=== PATIENT | female | born 1925 | race Caucasian/White ===

== ENCOUNTER 2017-02-06 08:44 | Inpatient (IN) | payer OTHER ==
--- NOTE | 2017-02-06 08:52 | EDPHY ---
H & P Time Seen by Provider: 02/06/17 08:51 HPI/ROS: CHIEF COMPLAINT: Cough HISTORY OF PRESENT ILLNESS: The patient arrives to the emergency department by paramedics. The patient has a history of Alzheimer's disease and is unable to provide much history. According to paramedics, they were contacted by the patient's [place] [facility] with a chief complaint of cough rib pain. The patient does report she has had a cough but is unable to quantify how long that has been present for. She denies any abdominal pain. She denies any asymmetric calf pain or swelling. The patient denies any additional acute complaints. REVIEW OF SYSTEMS: A comprehensive 10 point review of systems is otherwise negative aside from elements mentioned in the history of present illness, however history is felt to be limited secondary to the patient's underlying Alzheimer's disease. Source: Patient Exam Limitations: No limitations - Personal History Tetanus Vaccine Date: -2008 and booster 2014 - Medical/Surgical History Hx Asthma: No Hx Chronic Respiratory Disease: Yes Hx Diabetes: No Hx Cardiac Disease: Yes Hx Renal Disease: No Hx Cirrhosis: No Hx Alcoholism: No Hx HIV/AIDS: No Hx Splenectomy or Spleen Trauma: No Other PMH: alzheimer's, hypothyroid, pacemaker, underlying bradycardia - Social History Smoking Status: Never smoked - Physical Exam Exam: General Appearance: Elderly female, no acute distress Eyes: Pupils equal and round no pallor or injection ENT, Mouth: Mucous membranes moist Respiratory: There are no retractions, lungs are clear to auscultation Cardiovascular: Regular rate and rhythm Gastrointestinal: Abdomen is soft and nontender, no masses, bowel sounds normal Neurological: A&Ox1 (baseline), normal motor function, normal sensory exam, normal cranial nerves Skin: Warm and dry, no rashes Musculoskeletal: Neck is supple nontender Extremities: symmetrical, full range of motion Constitutional: Initial Vital Signs Temperature (C) 36.9 C 02/06/17 08:47 Heart Rate 78 02/06/17 08:47 Respiratory Rate 16 02/06/17 08:47 Blood Pressure 106/58 L 02/06/17 08:47 O2 Sat (%) 90 L 02/06/17 08:47 O2 Delivery Mode Room Air Allergies/Adverse Reactions: erythromycin base [Erythromycin Base] Allergy (Unknown, Verified 05/16/15 02:02) Unknown Sulfa (Sulfonamide Antibiotics) Allergy (Unknown, Verified 05/16/15 02:02) Unknown aspirin Allergy (Verified 05/16/15 02:02) codeine [Codeine] Allergy (Verified 05/16/15 02:02) gluten Allergy (Verified 05/16/15 02:02) Home Medications: Medication Instructions Recorded Acetaminophen [Tylenol 325mg (*)] 650 mg PO BID@12,16 05/12/15 Docusate Sodium [Colace 100 MG (*)] 100 mg PO BID PRN 05/12/15 Levothyroxine [Synthroid 75 mcg 75 mcg PO DAILY06 05/12/15 (*)] Memantine HCl [Namenda Xr] 28 mg PO DAILY 05/12/15 Omeprazole [Prilosec] 40 mg PO DAILY@1130 05/12/15 Polyethylene Glycol 3350 [Miralax 17 gm PO DAILY PRN 05/12/15 17 gm (*)] Sodium Chloride [Salt Tablet] 1 gm PO TID@08,12,20 05/12/15 oxyCODONE/APAP 5/325 [Percocet 1 tab PO Q4 PRN #0 tab 05/19/15 5/325 (*)] Escitalopram Oxalate [Lexapro] 10 mg PO DAILY@20 02/06/17 Estradiol [Estrace Vaginal (*)] 1 gm VG MWF 02/06/17 Furosemide [Lasix 20 MG (*)] 10 mg PO BID@08,12 02/06/17 Herbals/Supplements -Info Only 1 each PO DAILY 02/06/17 Potassium Cl [Klor-Con] 10 meq PO DAILY 02/06/17 Medical Decision Making - Diagnostics Imaging Results: Imaging Impressions Chest X-Ray 02/06/17 09:00 Impression: 1. Right upper lobe consolidation consistent with pneumonia. Has this patient aspirated? The patient has a history of presbyesophagus with dysmotility identified on esophagram in 2013. Follow-up radiography is recommended until clear. 2. Possible right thoracic inlet mass causing focal tracheal deviation. Chest CT might be considered. Results discussed with Dr. Clint Frost. ED Course/Re-evaluation: The patient presents to the ED with reported history of cough and rib/neck pain. The patient has no acute complaints in the emergency department. The patient's vital signs are stable aside from hypoxemia with an O2 sat of 87-90%. The patient is not on oxygen at baseline.. She is neurologically intact with cognitive changes consistent with her underlying dementia. The patient's chest x-ray does demonstrate evidence of a right upper lobe infiltrate. She is noted to have mild leukocytosis. The patient had blood cultures x2 obtained in the emergency department. She received supplemental oxygen. Given the patient's acute hypoxemia and pneumonia she will be admitted to the hospital. The patient's son has been notified of the patient's admission. The patient was started on IV Levaquin in the emergency department. Differential Diagnosis: Differential diagnosis considered includes asthma, bronchitis, pneumonia - Data Points Laboratory Results: Laboratory Results 02/06/17 Unknown 02/06/17 Unknown 02/06/17 02/06/17 Unknown Unknown WBC 11.27 10^3/uL H 10^3/uL (3.80-9.50) RBC 3.87 10^6/uL L 10^6/uL (4.18-5.33) Hgb 13.0 g/dL g/dL (12.6-16.3) Hct 38.4 % % (38.0-47.0) MCV 99.2 fL fL (81.5-99.8) MCH 33.6 pg pg (27.9-34.1) MCHC 33.9 g/dL g/dL (32.4-36.7) RDW 14.1 % % (11.5-15.2) Plt Count 166 10^3/uL 10^3/uL (150-400) MPV 11.0 fL fL (8.7-11.7) Neut % (Auto) 84.2 % H % (39.3-74.2) Lymph % (Auto) 5.4 % L % (15.0-45.0) [place] % (Auto) 9.4 % % (4.5-13.0) Eos % (Auto) 0.1 % L % (0.6-7.6) Baso % (Auto) 0.4 % % (0.3-1.7) Nucleat RBC Rel Count 0.0 % % (0.0-0.2) Absolute Neuts (auto) 9.49 10^3/uL H 10^3/uL (1.70-6.50) Absolute Lymphs (auto) 0.61 10^3/uL L 10^3/uL (1.00-3.00) Absolute Monos (auto) 1.06 10^3/uL H 10^3/uL (0.30-0.80) Absolute Eos (auto) 0.01 10^3/uL L 10^3/uL (0.03-0.40) Absolute Basos (auto) 0.04 10^3/uL 10^3/uL (0.02-0.10) Absolute Nucleated RBC 0.00 10^3/uL 10^3/uL (0-0.01) Immature Gran % 0.5 % % (0.0-1.1) Immature Gran # 0.06 10^3/uL 10^3/uL (0.00-0.10) Sodium 146 mEq/L H mEq/L (134-144) Potassium 4.0 mEq/L mEq/L (3.5-5.2) Chloride 103 mEq/L mEq/L (97-110) Carbon Dioxide 25 mEq/l mEq/l (22-31) Anion Gap 18 mEq/L H mEq/L (8-16) BUN 15 mg/dL mg/dL (7-23) Creatinine 0.7 mg/dL mg/dL (0.6-1.0) Estimated GFR > 60 Glucose 127 mg/dL H mg/dL (70-100) Calcium 9.2 mg/dL mg/dL (8.5-10.4) Troponin I 0.018 ng/mL ng/mL (0.000-0.034) Procalcitonin 0.18 ng/mL H ng/mL (0.02-0.10) Medications Given: Levofloxacin/Dextrose (Levaquin 500 Mg (Premix)) 100 mls @ 100 mls/hr IV EDNOW ONE PRN Reason: Protocol Stop: 02/06/17 11:49 Last Admin: 02/06/17 11:08 Dose: 100 mls Departure - Departure Disposition: [facility] Acute Clinical Impression: Dementia, Hypoxemia Pneumonia Qualifiers: Laterality: right Lung location: upper lobe of lung Condition: Fair Referrals: Lacey Quiles MD [Medical Doctor] - As per Instructions
[2017-02-06 09:53] LABS: % IMMATURE GRANULYOCYTES 0.5 % (0.0-1.1); ABSOLUTE IMMATURE GRANULOCYTES 0.06 10^3/uL (0.00-0.10); ADD DIFF? NO; ADD MORPH? NO; ADD SCAN? NO; ATYPICAL LYMPHOCYTE FLAG 0 (0-99); FRAGMENT RBC FLAG 0 (0-99); HEMATOCRIT 38.4 % (38.0-47.0); LEFT SHIFT FLG 30 (0-99); LIPEMIA HEMOLYSIS FLAG 90 (0-99); MEAN CELL HEMOGLOBIN 33.6 pg (27.9-34.1); MEAN CELL HEMOGLOBIN CONCENTR. 33.9 g/dL (32.4-36.7); MEAN CELL VOLUME 99.2 fL (81.5-99.8); PLATELET CLUMPS FLAG 30 (0-99); PLATELET COUNT 166 10^3/uL (150-400); RED BLOOD CELL COUNT 3.87 10^6/uL (4.18-5.33); RED CELL DISTRIBUTION WIDTH 14.1 % (11.5-15.2)
[2017-02-06 10:09] LABS: ANION GAP 18 mEq/L (8-16); CALCIUM 9.2 mg/dL (8.5-10.4); CARBON DIOXIDE 25 mEq/l (22-31); CHLORIDE 103 mEq/L (97-110); CREATININE 0.7 mg/dL (0.6-1.0); GLOMERULAR FILTRATION RATE > 60; GLUCOSE 127 mg/dL (70-100); SODIUM 146 mEq/L (134-144)
--- NOTE | 2017-02-06 10:15 | CPEKG ---
Heart Rate: 78 RR Interval: 769 P-R Interval: 140 QRSD Interval: 90 QT Interval: 392 QTC Interval: 447 P [place]: 18 QRS [place]: -33 T Wave [place]: 16 EKG Severity - OTHERWISE NORMAL ECG - EKG Impression: SINUS RHYTHM EKG Impression: LEFT AXIS DEVIATION Electronically Signed By: João Frost 06-Feb-2017 12:51:05
[2017-02-06 10:20] LABS: TROPONIN I 0.018 ng/mL (0.000-0.034)
[2017-02-06] MEDS ORDERED: levOFLOXACIN 500 MG/DEXTROSE 100 ML IV ONE (10:50)
[2017-02-06 11:02] LABS: PROCALCITONIN 0.18 ng/mL (0.02-0.10)
[2017-02-06] MEDS ORDERED: ONDANSETRON DISINTEGRATING 4 MG TAB PO PRN (12:06)
[2017-02-06] MEDS ORDERED: HYDROCODONE/APAP 5/325 TAB PO PRN (12:06)
[2017-02-06] MEDS ORDERED: ONDANSETRON 4 MG/2 ML VIAL IVP PRN (12:06)
[2017-02-06] MEDS ORDERED: ACETAMINOPHEN 325 MG TAB PO PRN (12:06)
--- NOTE | 2017-02-06 12:45 | ASMTCASEMG ---
Living Arrangements What is your living Answers: Unknown arrangement? Who do you live with? Type Of Residence What kind of residence do Answers: Assisted Living you live in? Type of Residence Facility Name Notes: [facility] Stairs in Home Answers: No Environment Discharge Plan Comments Coordination Status Comments Notes: Pt's son Nikolas Barnes called at request of ED MD. Dr. Nath wanted to address any concerns about sending pt back to [facility] with home medications. Nikolas indicated he had some concerns and he was told by [facility] that the pt was in [facility] He indicated that he preferred to have her observed by the hospital to ensure she does not get worse. He reported that the pt has a history of alcohol use and she calls him to request vodka. CM did not see pt directly, ED RN reported pt. has significant memory loss and struggled to respond to health questions. ODNA CORRALES CM to follow. Date Signed: 02/06/2017 12:44 PM Electronically Signed By:Isabelle Gresham LCSW
[2017-02-06] MEDS ORDERED: PIPERACILLIN/TAZO 3.375 GM/DEX 50 ML IV SCH ×2 (14:00→15:30)
[2017-02-06] MEDS: NS 1,000 ML IV SCH (14:49)
[2017-02-06] MEDS: IPRATROPIUM/ALBUTEROL 3 ML DEYVIAL IH SCH ×2 (15:19→21:29)
--- NOTE | 2017-02-06 15:35 | GHP ---
[f rep st] HISTORY AND PHYSICAL DATE OF ADMISSION: 02/06/2017 CHIEF COMPLAINT: Cough and weakness. HISTORY OF PRESENT ILLNESS: The patient is a pleasant 89-year-old female with a past medical history of dementia, who currently resides in the Memory Unit at [facility]. She had reportedly been ill r ecently with cold-like symptoms over the preceding days. She was brought to the emergency room by baldev fuentes. In the emergency room, she was initially noted to be mildly hypoxic with oxygen saturation at 87% on room air. Chest imaging performed revealed the presence of a right upper lobe consolidatio n consistent with pneumonia. There was a mass also possibly noted on chest imaging, which was causin g some focal tracheal deviation. CT of the chest was recommended for additional investigation. The patient's son was present at the bedside during evaluation today. I did review code status with him, as she has been a do not attempt resuscitation in the past, and they do confirm that that is still i n place. Otherwise, the patient has not had any difficulty with coughing or swallowing when she has been eating. PAST MEDICAL HISTORY: 1. Dementia. 2. Hypothyroidism. 3. Hypertension. 4. History of bradycardia, status post pacemaker placement. 5. Migraine headaches. PAST SURGICAL HISTORY: 1. Left eye surgery. 2. Pacemaker placement. ALLERGIES: 1. Erythromycin. 2. Sulfa. 3. Aspirin. 4. Codeine. MEDICATIONS: 1. MiraLAX 17 g daily as needed. 2. Klor-Con 10 mEq daily. 3. Omeprazole 40 mg daily. 4. Namenda XR 28 mg daily. 5. Lasix 10 mg twice a day. 6. Levothyroxine 75 mcg daily. 7. Estradiol vaginal 1 g Monday, Monday and Monday. 8. Oxycodone/acetaminophen 5/325 one tablet every 4 hours as needed. 9. Lexapro 10 mg daily. 10. Colace 100 mg twice a day as needed. 11. Salt tablets 1 g three times a day. FAMILY HISTORY: Mother and father of unknown causes. SOCIAL HISTORY: The patient currently resides in the Memory Unit at [facility]. Her son is present with her today at the bedside, and he is her [id number]. Code status was reviewed, and she i s a do not attempt resuscitation code status. REVIEW OF SYSTEMS: CONSTITUTIONAL: Positive for subjective fevers and chills. ENT: Positive for r ecent upper respiratory illness symptoms. CARDIOVASCULAR: No complaints of chest pains, palpitation s or syncopal episodes. RESPIRATORY: No complaints of any hemoptysis. She has noted a productive c ough and subjective shortness of breath. GI: No nausea, vomiting, diarrhea or constipation. No dif ficulty reported with meals. : No report of any difficulty with urination or burning with urinati on. The nurse reports that she does have vaginal prolapse. NEUROLOGIC: No complaints of headaches or focal weakness. HEMATOLOGIC: No history of any deep vein thrombosis or pulmonary embolism. PSYC HIATRIC: No history of anxiety or depression. She does have a history of dementia. ENDOCRINE: No history of diabetes. She is treated for hypothyroidism. SKIN: No recent skin rashes. MUSCULOSKELE RHETT: No focal joint pains. PHYSICAL EXAMINATION: VITAL SIGNS: Temperature 36.9, blood pressure 103/57, heart rate 77, respirat ions 18, satting 87% on room air initially in the emergency room, currently at 90% on room air. APPE ARANCE IN GENERAL: She appears comfortable. She is awake, alert, able to provide some history, but memory does seem poor. Hearing is normal. HEENT: Extraocular movements intact. Pupils equal. No scleral icterus is noted. NECK: Supple. No thyroid enlargement appreciated. CHEST: She has right upper lobe crackles. No significant wheezing is appreciated. Her respiratory effort appears normal . HEART: Regular. She does have a systolic murmur heard best right upper sternal border. ABDOMEN: Soft, nontender, nondistended. : No Hunt catheter in place. EXTREMITIES: No significant maxine ing edema. MUSCULOSKELETAL: No calf pain with palpation. No joint swelling noted. NEUROLOGIC: Cr anial nerves 2 through 12 appear intact. Her strength in extremities appears 5/5. LABS: White blood cell count 11, hemoglobin 13, platelets 166. Sodium is 146, potassium 4.0, chlori de 103, bicarb 25, BUN 15, creatinine 0.7, glucose of 127. Troponin 0.018. Procalcitonin 0.18. IMAGING: Chest x-ray shows right upper lobe consolidation consistent with pneumonia and possible rig ht thoracic inlet mass with focal tracheal deviation. ASSESSMENT AND PLAN: 1. Pneumonia: Potentially healthcare-associated pneumonia as she is currently a resident in the [facility] or[facility] Unit at [facility]. I would not exclude the possibility of aspiration as well, but she does not report any symptoms concerning for aspiration. We will go ahead and start with Zosyn for now. Bernardino Martinez has been consulted as well for a swallowing evaluation. We will order respiratory PCR charles el and schedule nebulizers through the day as well. Repeat CBC in the morning to trend white blood c ell count with these measures. 2. Acute hypoxic respiratory failure: The patient does have an oxygen saturation of 87% documented from the emergency room when she first came in. With some treatment, she was able to get this up to 90% on room air currently. We do have the oxygen on standby in case she desaturates. 3. History of hypertension: It does not appear she is on any antihypertensive agents on her outpati ent records, except for the Lasix. She clinically looks dry, and we will hold the Lasix for now. 4. Hypothyroidism: Continue current dosing of levothyroxine. 5. History of constipation: We will schedule MiraLAX at this time. 6. Esophageal reflux: Continue proton pump inhibitor. 7. Deep vein thrombosis prophylaxis: We will start Lovenox. 8. Possible tracheal mass: CT imaging has been ordered for further assessment. DISPOSITION: Anticipate she will be here for over 2 midnights, probably 3-4 days, so I am admitting her under an inpatient status. Likely could return back to [facility] once clinically stable and im proved. /[id number]/MODL
--- NOTE | 2017-02-06 15:56 | PDMN ---
Medical Necessity Medical necessity: M282 cPNA- senior living resident with O2 sats of 87% RA, with dementia, pna noted on CXR- further monitoring and tx needed
--- NOTE | 2017-02-06 16:32 | WOCRNPDOC ---
JAGUAR Advanced Assessment Note - Skin Integrity Problem, Advanced Assess Buttock Dressing Type: Open to Air Dedra Wound Tissue: Blanching, Erythema, Scarred Skin Integrity Problem Comment: No pressure injury present. Patient with ideopathic hyperpigmentation of skin surrounding anus. Also scar tissue over coccyx area where an open pressure injury was and has healed. No present concerns. Wound care will sign off. Jer FIELDS in room for care.
[2017-02-06] MEDS ORDERED: IOPAMIDOL (ISOVUE-300) 100 ML BTL ONE (16:34)
[2017-02-06] MEDS: PIPERACILLIN/TAZO 3.375 GM/DEX 50 ML IV SCH (21:40)
[2017-02-07] MEDS: PIPERACILLIN/TAZO 3.375 GM/DEX 50 ML IV SCH ×4 (02:46→19:57)
[2017-02-07] MEDS: IPRATROPIUM/ALBUTEROL 3 ML DEYVIAL IH SCH ×4 (05:17→20:44)
[2017-02-07 05:21] LABS: % IMMATURE GRANULYOCYTES 0.5 % (0.0-1.1); ABSOLUTE IMMATURE GRANULOCYTES 0.05 10^3/uL (0.00-0.10); ADD DIFF? NO; ADD MORPH? NO; ADD SCAN? NO; ATYPICAL LYMPHOCYTE FLAG 0 (0-99); FRAGMENT RBC FLAG 0 (0-99); HEMATOCRIT 30.3 % (38.0-47.0); HEMOGLOBIN 10.1 g/dL (12.6-16.3); LEFT SHIFT FLG 40 (0-99); LIPEMIA HEMOLYSIS FLAG 80 (0-99); MEAN CELL HEMOGLOBIN CONCENTR. 33.3 g/dL (32.4-36.7); MEAN PLATELET VOLUME 10.9 fL (8.7-11.7); PLATELET CLUMPS FLAG 0 (0-99); PLATELET COUNT 149 10^3/uL (150-400); RED BLOOD CELL COUNT 3.06 10^6/uL (4.18-5.33); RED CELL DISTRIBUTION WIDTH 13.9 % (11.5-15.2)
[2017-02-07 05:35] LABS: ANION GAP 14 mEq/L (8-16); CARBON DIOXIDE 23 mEq/l (22-31); CHLORIDE 106 mEq/L (97-110); CREATININE 0.8 mg/dL (0.6-1.0); GLOMERULAR FILTRATION RATE > 60; GLUCOSE 140 mg/dL (70-100); POTASSIUM 3.4 mEq/L (3.5-5.2); SODIUM 143 mEq/L (134-144)
[2017-02-07] MEDS ORDERED: LEVOTHYROXINE 75 MCG TAB PO SCH (06:00)
[2017-02-07] MEDS: ENOXAPARIN 40 MG/0.4 ML SYR SC SCH (08:58)
[2017-02-07] MEDS: POLYETHYLENE GLYCOL 3350 17 GM PKT PO SCH (08:59)
[2017-02-07] MEDS ORDERED: PANTOPRAZOLE SODIUM 40 MG TAB PO SCH (09:00)
[2017-02-07] MEDS ORDERED: OXYCODONE/APAP 5/325 TAB PO PRN (10:23)
[2017-02-07] MEDS ORDERED: POLYETHYLENE GLYCOL 3350 17 GM PKT PO PRN (10:23)
[2017-02-07] MEDS ORDERED: DOCUSATE SODIUM 100 MG CAP PO PRN (10:23)
[2017-02-07] MEDS: LEVOTHYROXINE 75 MCG TAB PO SCH (11:08)
[2017-02-07] MEDS: PANTOPRAZOLE SODIUM 40 MG TAB PO SCH (11:09)
[2017-02-07] MEDS: FUROSEMIDE 20 MG TAB PO SCH (11:09)
[2017-02-07] MEDS: ACETAMINOPHEN 325 MG TAB PO SCH ×2 (11:10→15:12)
[2017-02-07] MEDS: SODIUM CHLORIDE 1,000 MG TAB PO SCH ×2 (11:11→19:57)
--- NOTE | 2017-02-07 11:19 | HOSPPROG ---
Hospitalist Progress Note Assessment/Plan: 89y female with c/o weakness and cough. First encounter, chart reviewed. D/W RN. #PNA treating for HAP, lives at [facility] also potential for aspiration given location, await [employer] eval #AHRF related to above cont supportive care #HX HTN stable #Reflux cont meds #Dementia at baseline #Dispo likely return to [facility] in am cont supportive treatment and eval Subjective: Up in chair. Feels well. No pain. Objective: Vital Signs Temp Pulse Resp BP Pulse Ox 38.1 C 81 16 99/62 L 92 02/07/17 08:00 02/07/17 08:00 02/07/17 08:00 02/07/17 08:00 02/07/17 08:00 Microbiology 02/06/17 14:41 Respiratory Panel (PCR) - Final Nasal, Sinus - Anaerobic Tube/Swab No Organism Detected Laboratory Results 02/07/17 04:59 02/07/17 04:59 02/06/17 02/07/17 02/08/17 05:59 05:59 05:59 Intake Total 100 Balance 100 - Physical Exam Constitutional: no apparent distress, appears nourished, not in pain Eyes: PERRL, anicteric sclera, EOMI Ears, Nose, Mouth, Throat: moist mucous membranes, hearing normal, ears appear normal Cardiovascular: regular rate and rhythym, No JVD, No edema Respiratory: no respiratory distress, no rales or rhonchi, reduced air movement Gastrointestinal: normoactive bowel sounds, No tenderness, No ascites Skin: warm, normal color, No mottled Musculoskeletal: normal joint ROM, no joint effusions, generalized weakness Psychiatric: not anxious, not encephalopathic, poor memory ICD10 Worksheet Patient Problems: Problems Problem Status Onset Diarrhea Acute Abdominal pain Acute Clavicle fracture Acute Palliative care encounter Acute Pneumonia Acute Dementia Acute Hypoxemia Acute
[2017-02-07] MEDS ORDERED: NON-FORMULARY NEW DRUG (Omeprazole [Prilosec] 40 MG) PO SCH (11:30)
[2017-02-07] MEDS: NON-FORMULARY NEW DRUG (Memantine Hcl [Namenda Xr] 28 MG) PO SCH (11:38)
[2017-02-07] MEDS: NS 1,000 ML IV SCH ×2 (11:42→11:43)
--- NOTE | 2017-02-07 15:51 | ASMTCMCOM ---
CM Note CM Note Notes: Pt is a 89 y/o female that lives at [facility]. Pt was admitted for pneumonia. CM recieved a call from Abigail Marroquin from pt's PCP office (Dr. Quiles) concerning code status and if pt has a MDPOA. CM called Abigail back and informed her that pt is a DNR and her son Inderjit is MDPOA. CM met w/ pt for dispo planning. PT is recommending assised living and OT is recommending assisted living vs CM called pts son Inderjit regarding d/c POC. Son would like pt to have HC upon d/c. CM called [facility] and spoke w/ Zak about HC. Zak reports that pt is current w/ [facility]. CM faxed over updates to [facility]. CM to follow. Date Signed: 02/07/2017 03:51 PM Electronically Signed By:CHEPE Orozco
[2017-02-07] MEDS ORDERED: ESCITALOPRAM OXALATE 10 MG TAB PO SCH (20:00)
[2017-02-08] MEDS: PIPERACILLIN/TAZO 3.375 GM/DEX 50 ML IV SCH ×2 (01:43→08:35)
[2017-02-08] MEDS: IPRATROPIUM/ALBUTEROL 3 ML DEYVIAL IH SCH ×2 (05:13→11:33)
[2017-02-08 05:39] LABS: % IMMATURE GRANULYOCYTES 0.8 % (0.0-1.1); ABSOLUTE IMMATURE GRANULOCYTES 0.07 10^3/uL (0.00-0.10); ADD DIFF? NO; ADD MORPH? NO; ADD SCAN? NO; ATYPICAL LYMPHOCYTE FLAG 0 (0-99); FRAGMENT RBC FLAG 0 (0-99); HEMATOCRIT 29.8 % (38.0-47.0); HEMOGLOBIN 9.7 g/dL (12.6-16.3); LEFT SHIFT FLG 20 (0-99); LIPEMIA HEMOLYSIS FLAG 80 (0-99); MEAN CELL HEMOGLOBIN 32.7 pg (27.9-34.1); MEAN CELL HEMOGLOBIN CONCENTR. 32.6 g/dL (32.4-36.7); MEAN CELL VOLUME 100.3 fL (81.5-99.8); PLATELET CLUMPS FLAG 0 (0-99); PLATELET COUNT 172 10^3/uL (150-400); RED BLOOD CELL COUNT 2.97 10^6/uL (4.18-5.33); RED CELL DISTRIBUTION WIDTH 13.9 % (11.5-15.2)
[2017-02-08 05:48] LABS: ANION GAP 11 mEq/L (8-16); CALCIUM 8.3 mg/dL (8.5-10.4); CARBON DIOXIDE 23 mEq/l (22-31); CHLORIDE 108 mEq/L (97-110); CREATININE 0.7 mg/dL (0.6-1.0); GLOMERULAR FILTRATION RATE > 60; GLUCOSE 127 mg/dL (70-100); POTASSIUM 3.6 mEq/L (3.5-5.2); SODIUM 142 mEq/L (134-144)
[2017-02-08] MEDS ORDERED: ESTRADIOL 42.5 GM CRTUBE VG SCH (08:00)
[2017-02-08] MEDS: FUROSEMIDE 20 MG TAB PO SCH ×2 (08:30→11:37)
[2017-02-08] MEDS: LEVOTHYROXINE 75 MCG TAB PO SCH (08:30)
[2017-02-08] MEDS: SODIUM CHLORIDE 1,000 MG TAB PO SCH ×2 (08:31→11:38)
[2017-02-08] MEDS: POLYETHYLENE GLYCOL 3350 17 GM PKT PO SCH (08:31)
[2017-02-08] MEDS: ENOXAPARIN 40 MG/0.4 ML SYR SC SCH (08:34)
[2017-02-08] MEDS: NON-FORMULARY NEW DRUG (Memantine Hcl [Namenda Xr] 28 MG) PO SCH (08:36)
[2017-02-08] MEDS ORDERED: POTASSIUM CL 10 MEQ TAB PO SCH (09:00)
[2017-02-08] MEDS ORDERED: Herbals/Supplements -Info Only PO SCH (09:00)
--- NOTE | 2017-02-08 10:01 | HOSPPROG ---
Hospitalist Progress Note Assessment/Plan: 89y female with c/o weakness and cough. First encounter, chart reviewed. #PNA treating for HAP, lives at [facility] did not note any overt aspiration #AHRF related to above O2 levels stable on room air #HX HTN stable #anemia follow up w PCP #Reflux cont meds #Dementia at baseline #Dispo dc to [facility] with additional help Subjective: Bogdan has no complaints. Objective: Vital Signs Temp Pulse Resp BP Pulse Ox 37.1 C 67 16 107/67 96 02/08/17 08:00 02/08/17 08:00 02/08/17 08:00 02/08/17 08:00 02/08/17 08:00 Laboratory Results 02/08/17 04:25 02/08/17 04:25 02/07/17 02/08/17 02/09/17 05:59 05:59 05:59 Intake Total 100 550 Output Total 100 Balance 100 550 -100 - Physical Exam Constitutional: no apparent distress, appears nourished, not in pain Eyes: PERRL Ears, Nose, Mouth, Throat: hearing normal Cardiovascular: regular rate and rhythym Respiratory: no respiratory distress, reduced air movement (bibasilar) Skin: warm Musculoskeletal: no muscle tenderness Neurologic: other (alert and oriented to herself) Psychiatric: interacting appropriately, poor insight, poor judgement, poor memory ICD10 Worksheet Patient Problems: Problems Problem Status Onset Dementia Acute Hypoxemia Acute Pneumonia Acute Abdominal pain Acute Clavicle fracture Acute Diarrhea Acute Palliative care encounter Acute
[2017-02-08 11:23] VITALS: BP 111/65; PULSE 68; RESP 20; TEMP 99.3; O2SAT 90
[2017-02-08] MEDS: ACETAMINOPHEN 325 MG TAB PO SCH (11:38)
[2017-02-08] MEDS: PANTOPRAZOLE SODIUM 40 MG TAB PO SCH (11:39)
--- NOTE | 2017-02-08 11:47 | PDIAF ---
- Diagnosis Diagnosis: pneumonia/ dementia Code Status: Do Not Resuscitate - Medication Management Discharge Medications: Medications to Continue on Transfer Acetaminophen [Tylenol 325mg (*)] 650 mg PO BID@,05/12/15 [Last Taken Unknown] Docusate Sodium [Colace 100 MG (*)] 100 mg PO BID PRN 05/12/15 [Last Taken 05/15 20:00] Levothyroxine [Synthroid 75 mcg (*)] 75 mcg PO DAILY06 05/12/15 [Last Taken 07:00] Memantine HCl [Namenda Xr] 28 mg PO DAILY 05/12/15 [Last Taken 05/15/15 08:00] Omeprazole [Prilosec] 40 mg PO DAILY@1130 05/12/15 [Last Taken 05/15/15 12:00] Polyethylene Glycol 3350 [Miralax 17 gm (*)] 17 gm PO DAILY PRN 05/12/15 [Last Taken 05/15/15 08:00] Sodium Chloride [Salt Tablet] 1 gm PO TID@,,05/12/15 [Last Taken 20:00] oxyCODONE/APAP 5/325 [Percocet 5/325 (*)] 1 tab PO Q4 PRN #0 tab 05/19/15 [Last Taken Unknown] Escitalopram Oxalate [Lexapro 10 MG] 10 mg PO DAILY@20 02/06/17 [Last Taken Unknown] Estradiol [Estrace Vaginal (*)] 1 gm VG MW 02/06/17 [Last Taken Unknown] Furosemide [Lasix 20 MG (*)] 10 mg PO BID@02/06/17 [Last Taken Unknown] Herbals/Supplements -Info Only 1 each PO DAILY 02/06/17 [Last Taken Unknown] Potassium Cl [Klor-Con 10 meq (RX)] 10 meq PO DAILY 02/06/17 [Last Taken Unknown ] levOFLOXACIN [levAQUIN (*)] 750 mg PO DAILY #3 tab 02/08/17 [Last Taken Unknown] Discharge Medications: Refer to the Discharge Home Medication list for PRN reason. - Orders Services needed: Home Care, Registered Nurse, Physical Therapy, Occupational Therapy Home Care Face to Face: I certify that this patient was under my care and that I had the required [id number] encounter meeting the encounter requirements on the discharge day. My findings support the fact that the patient is homebound as defined in Home Care Face to Face Continued: CMS Chapter 7 Medicare Benefits Manual 30.1.1 , The condition of the patient is such that there exists a normal inability to leave home and consequently, leaving home would require a considerable and taxing effort. Diet Texture: Regular Texture Diet, Thin Liquids Additional: levaquin can affect the tendons/ if having pain stop. Start antibiotic on 02/09 Needs f/u in regards to anemia. - Labs/Radiology HCT/HGB Date: 01/24/17 Imaging Orders: repeat chest xray in 6 weeks - Follow Up Care Current Providers and Referrals: Lacey Quiles MD [Medical Doctor] - As per Instructions
--- NOTE | 2017-02-08 12:15 | ASMTCMCOM ---
CM Note CM Note Notes: CM spoke w/ Emmie Chun NP. Pt is being discharged back to [facility]. CM spoke w/ Dyana at [facility] and informed her of pts discharge. CM called pts son and informed him that pt will be discharging today. Son will transport pt back to [facility]. CM faxed over orders to [facility] and [facility]. CM provided DONNIE Castorena w/ phone number to give report. CM available for changes. Date Signed: 02/08/2017 12:14 PM Electronically Signed By:CHEPE Orozco
--- NOTE | 2017-02-08 13:32 | GDS ---
[f rep st] DISCHARGE SUMMARY DISCHARGE DIAGNOSES: 1. Healthcare-acquired pneumonia. Patient lives at [facility]. 2. Acute hypoxemic respiratory failure. 3. Hypertension. 4. Anemia. 5. Gastroesophageal reflux disease. 6. Dementia. HISTORY OF PRESENT ILLNESS: Briefly, the patient is an 89-year-old woman with dementia who resides a [facility]. She had been ill with cold-like symptoms for the preceding day. In the e mergency room she was mildly hypoxic with oxygen levels at 87% on room air. Chest imaging performed revealed the presence of a right upper lobe consolidation consistent with pneumonia. There was a mas s and also possibly noted on chest imaging which was causing a focal tracheal deviation. CT of the c hest was recommended for additional investigation. The chest CT noted a multifocal pneumonia, most p rominent in the right upper lobe, but fortunately this did not note any suspicious masses or signific ant adenopathy. She was treated with Zosyn, was evaluated by Speech Therapy. She did not note that she had any type of aspiration. She will be discharged on Levaquin for 3 more days. HOSPITAL COURSE: Per problem: 1. Healthcare-associated pneumonia. This was present on admission. She is markedly better. Her ox ygen levels are stable on room air. 2. Acute hypoxemic respiratory failure. She is on room air. 3. Hypertension. Blood pressure is stable. 4. Anemia. We need to get further followup workup with her PCP. 5. GERD, PPI. 6. Dementia, likely at her baseline. DISCHARGE CONDITION: Stable. Blood pressure is 111/65, heart rate is 68, respiratory rate is 20, O2 sats on room air are 90%. Temperature is 37.4 Celsius. MEDICATIONS AT DISCHARGE: Please see the EMR. DISCHARGE INSTRUCTIONS: 1. To follow up with her doctor in regard to her anemia. She needs further evaluation. 2. To get a repeat chest x-ray to make sure she has resolution of her pneumonia. Greater than 30 minutes discharging and coordinating care. /[id number]/MODL
--- NOTE | 2017-02-08 15:55 | ASDISCHSUM ---
Discharge Information Plan Status:Home with Home Health Medically Cleared to Leave:02/08/2017 Discharge Date:02/08/2017 01:55 PM D/C Disposition:Assisted Living ADT D/C Disposition:Home, Routine, Self-Care Projected Discharge Date:02/08/2017 11:00 AM Transportation at D/C: Discharge Delay Reason: Follow-Up Date:02/08/2017 11:00 AM Discharge Slot: Final Diagnosis: Placement Information Referral Type:*Home Health Care Services Referral ID:[id number] Provider Name:[facility] ([facility]) Address 1:[address] [address] Address 2: City:[place] Selection Factors: State:[place] Referral Type:Assisted Living Residence Referral ID:[id number] Provider Name:[facility] Address 1:[address] Phone Number: Address 2: Fax Number: City:[place] Selection Factors: State:[place] Patient Contact Information Contact Name:FILI Relationship:Son Address: City:[place] Alternate Phone: State/Zip Code:[place] Email: Financial Information Financial Class:Medicare Advantage Plans Primary Plan Desc:[employer] Primary Plan Number:[id number] Secondary Plan Desc: Secondary Plan Number: Assessment Information [facility] Initial CM Assessment Living Arrangements What is your living Answers: Unknown arrangement? Who do you live with? Type Of Residence What kind of residence do Answers: Assisted Living you live in? Type of Residence Facility Name Notes: [facility] Stairs in Home Answers: No Environment Discharge Plan Comments Coordination Status Comments Notes: Pt's son Nikolas Barnes called at request of ED . Dr. Nath wanted to address any concerns about sending pt back to [facility] with home medications. Nikolas indicated he had some concerns and he was told by [facility] that the pt was in [facility]. He indicated that he preferred to have her observed by the hospital to ensure she does not get worse. He reported that the pt has a history of alcohol use and she calls him to request vodka. CM did not see pt directly, ED RN reported pt. has significant memory loss and struggled to respond to health questions. DONA CORRALES CM to follow. Date Signed: 02/06/2017 12:44 PM Electronically Signed By:Isabelle Gresham LCSW [facility] Acuity / Level of Care Answers: Was the patient admitted to hospital via the emergency department? Yes: Emergency dept visits in Answers: 1 last 6 months Score: 4 Date Signed: 02/06/2017 12:45 PM Electronically Signed By:Isabelle Gresham LCSW [facility] Progress Note CM Note CM Note Notes: Pt is a 89 y/o female that lives at [facility]. Pt was admitted for pneumonia. CM recieved a call from Abigail Marroquin from pt's PCP office (Dr. Quiles) concerning code status and if pt has a MDPOA. CM called Abigail back and informed her that pt is a DNR and her son Inderjit is MDPOA. CM met w/ pt for dispo planning. PT is recommending assised living and OT is recommending assisted living vs CM called pts son Inderjit regarding d/c POC. Son would like pt to have HC upon d/c. CM called [facility] and spoke w/ Zak about HC. Zak reports that pt is current w/ [facility]. CM faxed over updates to [facility]. CM to follow. Date Signed: 02/07/2017 03:51 PM Electronically Signed By:CHEPE Orozco [facility] Progress Note CM Note CM Note Notes: CM spoke w/ Emmie Chun NP. Pt is being discharged back to [facility]. CM spoke w/ Dyana at [facility] and informed her of pts discharge. CM called pts son and informed him that pt will be discharging today. Son will transport pt back to [facility]. CM faxed over orders to [facility] and [facility]. CM provided DONNIE Castorena w/ phone number to give report. CM available for changes. Date Signed: 02/08/2017 12:14 PM Electronically Signed By:CHEPE Orozco Intervention Information Intervention Type:*IM-Signed Date of Service:02/08/2017 12:15 PM Patient Type:Inpatient Staff Member:Sangeeta Cook Hours: Discipline: Severity: Comment:
== END 2017-02-08 13:55 | disposition home health service (06) | DRG 193 ==
LOC: EDUNIT# → F3E 11:42
PROVIDERS: ADMIT Internal Medicine; ATTEND Internal Medicine
DX: J18.9 Pneumonia, unspecified organism (principal); J96.01 Acute respiratory failure with hypoxia; G30.9 Alzheimer's disease, unspecified; F02.80 Dementia in other diseases classified elsewhere, unspecified severity, without behavioral disturbance, psychotic disturbance, mood disturbance, and anxiety; D64.9 Anemia, unspecified; E03.9 Hypothyroidism, unspecified; I10 Essential (primary) hypertension; G43.909 Migraine, unspecified, not intractable, without status migrainosus; K21.9 Gastro-esophageal reflux disease without esophagitis; Z95.0 Presence of cardiac pacemaker
CPT/HCPCS: 92610-GN; 96365; 97161-GP; 97165-GO; 97530-GO; 97535-GO; G8978-GP-CI; G8979-GP-CI; G8987-GO-CJ; G8987-GO-CK; G8988-GO-CJ; G8989-GO-CJ; G8996-GN-CH; G8997-GN-CH; G8998-GN-CH; J1650; J1956; J2543; Q9967

== ENCOUNTER 2017-02-08 23:33 | Emergency (ER) | payer OTHER ==
[2017-02-08 23:56] VITALS: RESP 16; TEMP 99.9
--- NOTE | 2017-02-09 00:13 | EDPHY ---
H & P Stated Complaint: [facility] was d/c'd from [facility] today for PNA, fever tonight , diarrhea Time Seen by Provider: 02/08/17 23:50 HPI/ROS: Chief Complaint: Fever HPI: 89-year-old woman with a known right upper lobe pneumonia was discharged from the hospital earlier today. skilled nursing staff noted that she had a rising temperature and documented a fever of 102.3 and called EMS. They also stated she had a single episode of diarrhea. They do not believe that the patient appeared to be uncomfortable but was getting increasingly fatigued. Patient is currently without complaint. She is on Levaquin in plans are to continue that for the next 3 days. No shortness of breath. No chest pain. She is a poor historian giving her underlying Alzheimer's dementia. She does have a MOST form that is signed indicating comfort measures only. ROS: 10 point Review of Systems is negative except as noted in the HPI. PMH: Alzheimer's dementia, pneumonia Family History: non-contributory Physical Exam: Gen: Awake, Alert, No Distress HEENT: Nose: no rhinorrhea Eyes: PERRLA, EOMI Mouth: Moist mucosa Neck: Supple, no JVD Chest: nontender, rhonchi in the right upper lung Heart: S1, S2 normal, no murmur Abd: Soft, non-tender, no guarding Back: no CVA tenderness, no midline tenderness Ext: no edema, non-tender Skin: no rash Neuro: CN II-XII intact, Sensation grossly intact, Strength 5/5 in bilateral upper and lower extremities - Personal History Current Tetanus/Diphtheria Vaccine: Yes Current Tetanus Diphtheria and Acellular Pertussis (TDAP): Yes Tetanus Vaccine Date: -2008 and booster 2014 - Medical/Surgical History Hx Asthma: No Hx Chronic Respiratory Disease: Yes Hx Diabetes: No Hx Cardiac Disease: Yes Hx Renal Disease: No Hx Cirrhosis: No Hx Alcoholism: No Hx HIV/AIDS: No Hx Splenectomy or Spleen Trauma: No Other PMH: alzheimer's, hypothyroid, pacemaker, underlying bradycardia - Social History Smoking Status: Never smoked Constitutional: Initial Vital Signs Temperature (C) 37.7 C 02/08/17 23:47 Heart Rate 81 02/08/17 23:47 Respiratory Rate 16 02/08/17 23:47 Blood Pressure 131/78 H 02/08/17 23:47 O2 Sat (%) 95 02/08/17 23:47 O2 Delivery Mode Room Air O2 (L/minute) 2 Allergies/Adverse Reactions: erythromycin base [Erythromycin Base] Allergy (Unknown, Verified 02/08/17 23:47) Unknown Sulfa (Sulfonamide Antibiotics) Allergy (Unknown, Verified 02/08/17 23:47) Unknown aspirin Allergy (Verified 02/08/17 23:47) codeine [Codeine] Allergy (Verified 02/08/17 23:47) gluten Allergy (Verified 02/08/17 23:47) Home Medications: Medication Instructions Recorded Acetaminophen [Tylenol 325mg (*)] 650 mg PO BID@12,16 05/12/15 Docusate Sodium [Colace 100 MG (*)] 100 mg PO BID PRN 05/12/15 Levothyroxine [Synthroid 75 mcg 75 mcg PO DAILY06 05/12/15 (*)] Memantine HCl [Namenda Xr] 28 mg PO DAILY 05/12/15 Omeprazole [Prilosec] 40 mg PO DAILY@1130 05/12/15 Polyethylene Glycol 3350 [Miralax 17 gm PO DAILY PRN 05/12/15 17 gm (*)] Sodium Chloride [Salt Tablet] 1 gm PO TID@08,12,20 05/12/15 oxyCODONE/APAP 5/325 [Percocet 1 tab PO Q4 PRN #0 tab 05/19/15 5/325 (*)] Escitalopram Oxalate [Lexapro 10 10 mg PO DAILY@20 02/06/17 MG] Estradiol [Estrace Vaginal (*)] 1 gm VG MWF 02/06/17 Furosemide [Lasix 20 MG (*)] 10 mg PO BID@08,12 02/06/17 Herbals/Supplements -Info Only 1 each PO DAILY 02/06/17 Potassium Cl [Klor-Con 10 meq (RX)] 10 meq PO DAILY 02/06/17 levOFLOXACIN [levAQUIN (*)] 750 mg PO DAILY #3 tab 02/08/17 Medical Decision Making ED Course/Re-evaluation: 89-year-old female discharged Hospital today with a known right upper lobe pneumonia sent in for fever. I discussed with the nurse at [facility]. They did not give the patient any antipyretics. She is afebrile here. She is without complaint. His not appear uncomfortable. Given that her indications on her MOST form indicate comfort measures only I think that she can be kept comfortable at her facility. I have advised them that if they note a fever that they should give her acetaminophen to see if this brings her temperature down. She has not had any antipyretics and has no fever at this time. Her oxygen saturations are at the baseline when she was discharged today. They do have her next doses of antibiotics. I do not see any change in her condition during my evaluation now from her discharge earlier today. [facility] is happy to accept her back. She will follow up with primary care physician for further evaluation. Departure - Departure Disposition: Home, Routine, Self-Care Clinical Impression: Pneumonia Condition: Good Instructions: Pneumonia (ED) Additional Instructions: Continue taking her antibiotics as prescribed. If the patient has a fever please give her Tylenol and reassess for affect. Please make note of her MOST form and honor her wishes. Certainly send her back to the hospital if she appears uncomfortable and your unable to keep her comfortable in your facility. Referrals: Patient,NotPresent [Primary Care Provider] - As per Instructions
[2017-02-09 01:21] VITALS: BP 112/58; PULSE 76; O2SAT 87
== END 2017-02-09 01:18 | disposition home or self-care (01) ==
LOC: EDUNIT#
DX: J18.9 Pneumonia, unspecified organism (principal); Z95.0 Presence of cardiac pacemaker

== ENCOUNTER 2017-05-01 18:26 | Emergency (ER) | payer OTHER ==
[2017-05-01 18:54] VITALS: TEMP 98.2
--- NOTE | 2017-05-01 18:56 | EDPHY ---
H & P Stated Complaint: fall Time Seen by Provider: 05/01/17 18:43 HPI/ROS: CHIEF COMPLAINT: Found down HISTORY OF PRESENT ILLNESS: Patient is an 89-year-old female with a history of dementia who was found down at the detention with a small laceration to the occiput on the left. She thinks that she tripped but does not remember the details. She denies other pain or injury. She is at her baseline mental status. REVIEW OF SYSTEMS: Constitutional: denies: chills, fever, recent illness, recent injury EENTM: denies: blurred vision, double vision, nose congestion Respiratory: denies: cough, shortness of breath Cardiac: denies: chest pain, irregular heart rate, lightheadedness, palpitations Gastrointestinal/Abdominal: denies: abdominal pain, diarrhea, nausea, vomiting, blood streaked stools Genitourinary: denies: dysuria, frequency, hematuria, pain Musculoskeletal: denies: joint pain, muscle pain Skin: See HPI Neurological: denies: headache, numbness, paresthesia, tingling, dizziness, weakness Hematologic/Lymphatic: denies: blood clots, easy bleeding, easy bruising Immunologic/allergic: denies: HIV/AIDS, transplant EXAM: GENERAL: Well-appearing, well-nourished and in no acute distress. HEAD: No crepitus or depression. EYES: Pupils equal round and reactive to light, extraocular movements intact, sclera anicteric, conjunctiva are normal. ENT: TMs normal, nares patent, oropharynx clear without exudates. Moist mucous membranes. NECK: Normal range of motion, supple without lymphadenopathy or JVD. LUNGS: Breath sounds clear to auscultation bilaterally and equal. No wheezes rales or rhonchi. HEART: Regular rate and rhythm without murmurs, rubs or gallops. ABDOMEN: Soft, nontender, normoactive bowel sounds. No guarding, no rebound. No masses appreciated. BACK: No CVA tenderness, no spinal tenderness, step-offs or deformities EXTREMITIES: Normal range of motion, no pitting or edema. No clubbing or cyanosis. NEUROLOGICAL: Cranial nerves II through XII grossly intact. Normal speech, normal gait. 5/5 strength, normal movement in all extremities, normal sensation PSYCH: Pleasant, confused SKIN: 2 cm laceration left occiput, bleeding controlled. The Source: Patient - Personal History Current Tetanus/Diphtheria Vaccine: Yes Current Tetanus Diphtheria and Acellular Pertussis (TDAP): Yes Tetanus Vaccine Date: -2008 and booster 2014 - Medical/Surgical History Hx Asthma: No Hx Chronic Respiratory Disease: Yes Hx Diabetes: No Hx Cardiac Disease: Yes Hx Renal Disease: No Hx Cirrhosis: No Hx Alcoholism: No Hx HIV/AIDS: No Hx Splenectomy or Spleen Trauma: No Other PMH: alzheimer's, hypothyroid, pacemaker, underlying bradycardia - Family History Significant Family History: No pertinent family hx - Social History Smoking Status: Never smoked Alcohol Use: Sober Drug Use: None Constitutional: Initial Vital Signs Temperature (C) 36.8 C 05/01/17 18:26 Heart Rate 78 05/01/17 18:26 Respiratory Rate 16 05/01/17 18:26 Blood Pressure 101/71 05/01/17 18:26 O2 Sat (%) 94 05/01/17 18:26 O2 Delivery Mode Room Air Allergies/Adverse Reactions: erythromycin base [Erythromycin Base] Allergy (Unknown, Verified 02/08/17 23:47) Unknown Sulfa (Sulfonamide Antibiotics) Allergy (Unknown, Verified 02/08/17 23:47) Unknown aspirin Allergy (Verified 02/08/17 23:47) codeine [Codeine] Allergy (Verified 02/08/17 23:47) gluten Allergy (Verified 02/08/17 23:47) peanut Allergy (Verified 05/01/17 18:45) Penicillins Allergy (Verified 05/01/17 18:45) Home Medications: Medication Instructions Recorded Acetaminophen [Tylenol 325mg (*)] 650 mg PO BID@12,16 05/12/15 Docusate Sodium [Colace 100 MG (*)] 100 mg PO BID PRN 05/12/15 Levothyroxine [Synthroid 75 mcg 75 mcg PO DAILY06 05/12/15 (*)] Memantine HCl [Namenda Xr] 28 mg PO DAILY 05/12/15 Omeprazole [Prilosec] 40 mg PO DAILY@1130 05/12/15 Polyethylene Glycol 3350 [Miralax 17 gm PO DAILY PRN 05/12/15 17 gm (*)] Sodium Chloride [Salt Tablet] 1 gm PO TID@08,12,20 05/12/15 oxyCODONE/APAP 5/325 [Percocet 1 tab PO Q4 PRN #0 tab 05/19/15 5/325 (*)] Escitalopram Oxalate [Lexapro 10 10 mg PO DAILY@20 02/06/17 MG] Estradiol [Estrace Vaginal (*)] 1 gm VG MWF 02/06/17 Furosemide [Lasix 20 MG (*)] 10 mg PO BID@08,12 02/06/17 Herbals/Supplements -Info Only 1 each PO DAILY 02/06/17 Potassium Cl [Klor-Con 10 meq (RX)] 10 meq PO DAILY 02/06/17 Medical Decision Making Procedures: Procedure: Laceration repair. Verbal consent was obtained from the patient. The 2 cm left occiput laceration was not anesthetized with. The wound was irrigated copiously according to protocol, draped and explored to its base. It was approximately 1 cm deep. There were no deep structures involved. No foreign body was identified. The wound was repaired with 2 nigel. The wound repair was simple. The procedure was performed by myself. A dressing was then placed with sterile gauze and bacitracin. ED Course/Re-evaluation: 7:[address] we discussed the CT results. The patient is ambulating at her baseline. She denies other complaints. Her daughter is here and states that she seems normal. Will discharge her back to the detention. Head CT ordered in this adult patient for trauma for the following indication: Age greater than 65 years old Differential Diagnosis: Partial list of the Differential diagnosis considered include but were not limited to; scalp laceration, head injury and although unlikely based on the history and physical exam, I also considered neck injury, syncope, acute coronary disease, infection. Departure - Departure Disposition: Home, Routine, Self-Care Clinical Impression: Occipital scalp laceration Qualifiers: Encounter type: initial encounter Qualified Code(s): S01.01XA - Laceration without foreign body of scalp, initial encounter Condition: Fair Instructions: Staple Care (ED) Additional Instructions: Have your nigel removed in 10 days. Referrals: Patient,NotPresent [Unknown] - As per Instructions
[2017-05-01 20:08] VITALS: BP 118/80; PULSE 80; RESP 18; O2SAT 90
== END 2017-05-01 20:09 | disposition home or self-care (01) ==
LOC: EDUNIT#
PROC: 0HQ0XZZ Repair Scalp Skin, External Approach (ICD-10-PCS; principal; 2017-05-01)
DX: S01.01XA Laceration without foreign body of scalp, initial encounter (principal); G30.9 Alzheimer's disease, unspecified; Z91.010 Allergy to peanuts; W01.0XXA Fall on same level from slipping, tripping and stumbling without subsequent striking against object, initial encounter; Y92.129 Unspecified place in nursing home as the place of occurrence of the external cause